=== PATIENT | male | born 1950 | race Caucasian/White ===

== ENCOUNTER 2018-03-30 02:05 | Outpatient (CLI) | payer MEDICARE, OTHER ==
[2018-03-30 12:16] LABS: Hemoglobin 15.8 g/dL (14.0-18.0); Mean Corpuscular HGB CONC 33.8 g/dL (32.0-36.0); Mean Corpuscular Volume 91.6 fL (78.0-98.0); Mean Platelet Volume 7.1 fL (7.4-10.4); Platelet Count 233 thou/uL (130-400); RBC Distribution Width 11.9 % (11.5-14.5); Red Blood Cell (RBC) Count 5.09 mill/uL (4.70-6.10); White Blood Cell (WBC) Count 8.3 thou/uL (4.8-10.8)
[2018-03-30 12:32] LABS: PTT 28.2 SEC (22.9-36.1)
== END 2018-03-30 02:06 | disposition home or self-care (01) ==
LOC: LABBT 02:05
PROVIDERS: ATTEND Neurological Surgery
DX: Z01.818 Encounter for other preprocedural examination (principal); M50.01 Cervical disc disorder with myelopathy, high cervical region
CPT/HCPCS: 85027; 85610; 85730; 93005; 93010

== ENCOUNTER 2018-04-05 05:26 | Day surgery (SDC) | payer MEDICARE, OTHER ==
[2018-03-30 11:10] VITALS: BMI 37.6
--- NOTE | 2018-04-01 15:18 | HP ---
HISTORY OF PRESENT ILLNESS: This is a 67-year-old male, who reports to our office for evaluation of neck pain. He states that he has had pain going on for 20 years in his neck. He will get spasms in his trapezius. His neck will start hurting, which will then cause him headache. The patient states that he has had injections and ablations, which gave him relief; however, they lasted 6 to 8 weeks and then the pain comes right back. The patient is sick as being in pain. He denies physical therapy. Anti-inflammatories helped some. He denies radicular pain, numbness, or tingling. REVIEW OF SYSTEMS: A 10-point review of systems has been completed and is negative other than stated in the above HPI. PAST MEDICAL HISTORY: Arthritis, asthma, hypercholesterolemia, chronic pain, headaches, hypertension, lung disease. PAST SURGICAL HISTORY: Right shoulder, hernia, left elbow, penis implant, CT release bilaterally, gallbladder. FAMILY HISTORY: Father is . Mother is . SOCIAL HISTORY: The patient is a former smoker. Drinks alcohol. Does not use any other illicit drugs. He is sexually active. MEDICATIONS: 1. Lisinopril. 2. Atorvastatin. 3. Symbicort. 4. Methocarbamol. 5. . 6. ProAir. 7. Cod liver oil. 8. Vitamin B12. ALLERGIES: NO KNOWN DRUG ALLERGIES. PHYSICAL EXAMINATION: CONSTITUTIONAL: The patient is alert and oriented. HEENT: Head is normocephalic and atraumatic. Pupils are equal, round, and reactive to light. Extraocular movements are intact. Hearing is intact. Moist mucous membranes. NECK: Normal, soft, and supple. No masses are noted. Range of motion is intact, nonpainful. NEUROLOGIC: Awake, alert, oriented x3. Memory, attention and fund of knowledge are normal. Cranial nerves were grossly intact. EXTREMITIES: Upper extremities, normal. Does not disclose any focal motor or deep tendon reflex asymmetry. 5/5 bilateral strength in deltoid, biceps, triceps, wrist extension, finger extension, finger intrinsics. Reflexes symmetric. IMAGING: MRI of the cervical spine, C3-C4, C4-C5, disk disease, cord compression, severe, moderate left C5-C6 disk without severe nerve compression. Flexion-extension x-ray shows some motion at C3-C4, none at C5-C6. ASSESSMENT AND PLAN: Cervical disorder with myelopathy. Dr. Crawford has offered the surgery, anterior cervical discectomy and fusion, C3-C4 and C4-C5, to stop the progression of the myelopathy. Informed consent, we have discussed indications risks, benefits, alternatives, and expected results from surgery. The risks discussed include, but are not limited to, bleeding, infection, CSF leak, nerve damage, weakness, swallowing, trouble feeding tube placement, tracheal injury, esophageal injury, vocal cord injury, spinal cord injury, incontinence, paralysis, ventilator dependence, wheelchair dependence, stroke, loss of vision, carotid artery injury, jugular vein injury, hardware misplacement, cardiopulmonary complications of anesthesia or . Long-term complications discussed include, but are not limited to hardware failure and degradation of surrounding disks. He states he understands the risks and is willing to proceed. Job ID: [id number]
[2018-04-05] MEDS ORDERED: Thrombin 5000 UNITS/5 ML VIAL ONE (06:17)
[2018-04-05] MEDS ORDERED: Sodium Chloride 0.9% 10 ML ONE (06:17)
[2018-04-05] MEDS ORDERED: Fentanyl 100 MCG/2 ML VIAL ONE ×4 (06:20→11:33)
[2018-04-05] MEDS ORDERED: Albuterol Sulfate HFA (OR ONLY) ONE (08:23)
--- NOTE | 2018-04-05 11:34 | OP ---
DATE OF PROCEDURE: 04/05/2018 SAFETY DEPOSIT SUPERVISOR: Zhanna Cerda PA-C PREOPERATIVE INDICATION: Prevent further neurological deterioration. 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 PROCEDURES PERFORMED: Anterior cervical diskectomy, intervertebral arthrodesis, placement of intervertebral biomechanical device, anterior cervical plating C3-C4 and C4-C5, local morselized autograft, morselized allograft, and operating microscope. PREOPERATIVE MEDICATION: Ancef 2 g IV. DRAIN NUMBER: 0. DRAIN TYPE: None. DESCRIPTION OF PROCEDURE: The patient was brought to the operating room. General endotracheal anesthesia was induced. The neck was kept in normal anatomic alignment and the patient carefully positioned with his head in the gel-filled doughnut-shaped headrest. A lateral fluoro radiograph was used to plan our incision. The right side of the neck was sterilely prepped and draped. We opened with a 10 blade knife and we controlled bleeding with bipolar cautery. We dissected sharply to the platysma and cut this muscle in line with our incision. We continued our dissection medial to the sternocleidomastoid and lateral to the trachea and esophagus. We arrived to the prevertebral space. We placed a marker at C4-C5 and took a lateral fluoro radiograph to confirm the levels upon which we were operating. We then elevated the longus colli muscles off the anterior surface of C3, C4, and C5. Self-retaining retractors were placed under these muscles. We placed distraction pins at C3 and C5 and distracted across both of the intervening interspaces. We incised the interspaces with a 15 blade knife and removed disk contents using curettes and rongeurs. We brought the operating microscope into the field. Under microscopic magnification and using microsurgical techniques, we removed the remainder of the intervertebral disk. Using a microcurette, we accessed the ventral epidural space. We removed posterior osteophytes and posterior longitudinal ligament across the entire interspace with Kerrison rongeurs from one nerve root all the way to the other at C3-C4 and again C4-C5. At the completion of our decompression, there was no pressure whatsoever in the foramina or across the interspace on any of the dura. We prepared the endplates for grafting with curettes and then turned our attention to arthrodesis. With a rectangular shaped bone rasps, we measured the height of the interspace at C3-C4 to 7 mm and C4-C5 at 8 mm. We brought appropriately sized PEEK intervertebral grafts into the field. Anterior and posterior osteophytes were removed during our decompression and were carefully morselized on the back table after all soft tissue was removed. The morselized bone was added to demineralized bone matrix and this formed our fusion substrate. The substrate was packed into the PEEK grafts and the grafts were advanced into their respective interspaces under radiographic guidance to the appropriate depth. We removed our distraction pins and took the operating microscope out of the field. A 31-mm anterior cervical plate was brought into the field. We drilled pilot control operator helper holes through the plate into the vertebral bodies at C3, C4, and C5 and we affixed the plate using 14 mm screws. We used fixed angle screws at C5 and variable angle screws at C3 and C4. We engaged the locking mechanism over each of the 6 screws. AP and lateral fluoro radiographs confirmed adequate positioning of all their instrumentation. We irrigated copiously with bacitracin irrigation. Hemostasis was excellent. We closed the wound in anatomical layers and we applied a sterile dressing. This was a clean case, no contamination. Job ID: [id number]
[2018-04-05] MEDS ORDERED: Morphine 2 MG/ML SYRINGE ONE (12:48)
[2018-04-05] MEDS ORDERED: Promethazine HCl 25 MG/ML VIAL ONE (12:48)
[2018-04-05] MEDS ORDERED: Ondansetron PF 4 MG/2 ML Vial ONE (14:21)
[2018-04-05] MEDS ORDERED: Lidocaine 1% PF 5 ML VIAL ONE (14:21)
[2018-04-05] MEDS ORDERED: Esmolol 100 MG/10 ML VIAL ONE (14:21)
[2018-04-05] MEDS ORDERED: Glycopyrrolate 0.2 MG/ML 5 ML SYRINGE ONE (14:21)
[2018-04-05] MEDS ORDERED: PROVENTIL INHALER 6.7 G (200 INHALATIONS) ONE (14:21)
[2018-04-05] MEDS ORDERED: PHENYLEPHRINE-NS 100 MCG/ML 10 ML SYRINGE ONE (14:21)
[2018-04-05] MEDS ORDERED: Rocuronium Bromide 10 MG/ML (10ML VIAL) ONE (14:21)
[2018-04-05] MEDS ORDERED: Dexamethasone 20 MG/5 ML VIAL ONE (14:21)
[2018-04-05] MEDS ORDERED: PROPOFOL 200 MG/20 ML VIAL ONE (14:21)
[2018-04-05] MEDS ORDERED: Ketorolac Tromethamine 30 MG/ML VIAL ONE (14:21)
[2018-04-05] MEDS ORDERED: HYDROcodone/Acetaminophen 5/325 mg Tablet ONE (14:35)
== END 2018-04-05 15:15 | disposition home or self-care (01) ==
LOC: SDC 05:26
PROVIDERS: ATTEND Neurological Surgery
PROC: 0RG20A0 Fusion of 2 or more Cervical Vertebral Joints with Interbody Fusion Device, Anterior Approach, Anterior Column, Open Approach (ICD-10-PCS; principal; 2018-04-05)
PROC: 0RG2070 Fusion of 2 or more Cervical Vertebral Joints with Autologous Tissue Substitute, Anterior Approach, Anterior Column, Open Approach (ICD-10-PCS; 2018-04-05)
DX: M50.01 Cervical disc disorder with myelopathy, high cervical region (principal); I10 Essential (primary) hypertension; J45.909 Unspecified asthma, uncomplicated; M19.90 Unspecified osteoarthritis, unspecified site; N40.0 Benign prostatic hyperplasia without lower urinary tract symptoms; E78.00 Pure hypercholesterolemia, unspecified; Z87.891 Personal history of nicotine dependence; Z88.5 Allergy status to narcotic agent; Z90.49 Acquired absence of other specified parts of digestive tract; Z79.1 Long term (current) use of non-steroidal anti-inflammatories (NSAID); Z79.899 Other long term (current) drug therapy; Z98.890 Other specified postprocedural states
CPT/HCPCS: 20930; 20936; 22551; 22552; 22845; 22853 ×2; 76000; C1713 ×2; C1776; L0174; J0131; J1100; J1885; J2001; J2270; J2405; J2550; J2704; J3010; J3490

== ENCOUNTER 2019-03-28 06:31 | Day surgery (SDC) | payer MEDICARE, OTHER ==
[2019-03-27 14:52] VITALS: BMI 37.3
[~2019-03-28 06:31] MED LIST: EPINEPHrine 0.3 MG in Ophthalmic Irrigation Solution 500 ML IRR SCH; Fentanyl 100 MCG/2 ML VIAL ONE; Midazolam HCl 2 mg/2 ml Vial ONE
[2019-03-28] MEDS ORDERED: Phenylephrine 2.5% Ophth Soln 5 ML BOT ONE (06:56)
[2019-03-28] MEDS ORDERED: Cyclopentolate 1% Opth Drop 2 ML BOT ONE (06:56)
[2019-03-28] MEDS ORDERED: Maxitrol 0.1% Opth Oint 3.5 GM TUBE ONE (13:00)
[2019-03-28] MEDS ORDERED: Lidocaine 1% PF 5 ML VIAL ONE (13:00)
[2019-03-28] MEDS ORDERED: Triamcinolone 40 MG/ML VIAL ONE (13:00)
[2019-03-28] MEDS ORDERED: PROPOFOL 200 MG/20 ML VIAL ONE (13:00)
[2019-03-28] MEDS ORDERED: Bupivacaine PF 0.75% SDV 10 ML ONE (13:00)
[2019-03-28] MEDS ORDERED: Lidocaine 4% PF 5 ML AMP ONE (13:00)
[2019-03-28] MEDS ORDERED: Indocyanine Green 25 MG/10 ML VIAL ONE (13:00)
[2019-03-28] MEDS ORDERED: CEFAZOLIN 1 GM VIAL ONE (13:00)
--- NOTE | 2019-03-28 14:13 | OP ---
DATE OF PROCEDURE: 03/28/2019 PRINCIPAL PREOPERATIVE DIAGNOSIS: Epiretinal membrane, left eye. POSTOPERATIVE DIAGNOSIS: Epiretinal membrane, left eye. NAME OF PROCEDURES PERFORMED: 1. 25-gauge pars plana vitrectomy, left eye. 2. Epiretinal membrane/internal limiting membrane removal, left eye. ESTIMATED BLOOD LOSS: None. SPECIMENS REMOVED: None. COMPLICATIONS: None. ANESTHESIA: MAC with retrobulbar block. SUMMARY OF OPERATION: The patient was identified in the preoperative holding area, where the correct eye being the left eye was marked for surgery. The patient was taken to the operating room, where MAC anesthesia was induced. The retrobulbar block was administered to the left eye. The block consisted of 1:1 ratio of 4% lidocaine and 0.75% Marcaine. A total of 5 mL was administered. The left eye was then prepped and draped in the usual sterile ophthalmic fashion for surgery. A wire-clip lid speculum was placed. A standard 25-gauge pars plana vitrectomy platform was fashioned with trocars placed approximately 4 mm from the limbus. The infusion was noted to be within the vitreous cavity prior to being turned on to an infusion pressure of 30 mmHg. The light pipe and microvitrector were introduced in the eye under visualization of the BIOM viewing system. A careful core vitrectomy was performed followed by injection of Kenalog. A subsequent gentle posterior vitreous detachment was created with use of the microvitrector followed by completion of peripheral shave vitrectomy. Following vitrectomy, ICG dye was used to stain the internal limiting membrane. Using the Lazaro ILM forceps, the internal limiting membrane/epiretinal membrane complex was gently removed in a circumferential fashion about the fovea. The peel extended approximately 2 disk diameters in radius circumferentially from the fovea. Following peeling, the microvitrector was reintroduced in the eye to remove any residual vitreous debris. A 360-degree scleral depressed exam of the periphery revealed no defects. The cannulas were sequentially removed and all sclerotomies were noted to be watertight. Subconjunctival Ancef and Kenalog were injected. The wire-clip lid speculum was removed followed by application of Tobradex ophthalmic ointment and a light patch and shield. The patient tolerated the procedure well and was taken to the outpatient recovery area in good condition. Job ID: [id number]
== END 2019-03-28 09:35 | disposition home or self-care (01) ==
LOC: SDC 06:31
PROVIDERS: ATTEND Ophthalmology Retina Specialist
PROC: 08T53ZZ Resection of Left Vitreous, Percutaneous Approach (ICD-10-PCS; principal; 2019-03-28)
PROC: 08NF3ZZ Release Left Retina, Percutaneous Approach (ICD-10-PCS; 2019-03-28)
DX: H35.372 Puckering of macula, left eye (principal); Z79.1 Long term (current) use of non-steroidal anti-inflammatories (NSAID); Z79.899 Other long term (current) drug therapy; Z88.5 Allergy status to narcotic agent
CPT/HCPCS: J0171; J0690; J2001; J2250; J2704; J3010; J3301; J3490